=== PATIENT | female | born 1985 | race Caucasian/White ===

== ENCOUNTER 2017-01-23 16:23 | Emergency (ER) | payer OTHER ==
[~2017-01-23] VITALS: Ht 162.6 cm; Wt 102.2 kg
[~2017-01-23 16:23] MED LIST: BACTRIM DS 8001 TA1 PO; CIPRO 250MG TA250 MG PO; CIPRO 500MG TA500 MG PO; CLINDAMYCIN HC300 MG PO; COLAZAL750 MG PO; ESTRADIOL1 MG TD; FLOMAX 0.4MG C0.4 MG PO; MEDROL 4MG. DOSE4 MG PO; NOMEDS *; PERCOCET 5/3251 EACH PO; PHENERGAN 25MG.25 M1 PO; PREDNISONE 20MG20 MG PO; ZOFRAN4 MG PO
--- OUTSIDE RECORDS SUMMARY | 2017-01-23 16:30 | External Medical Summary Rpt | CCD ---
Author Author , FREDERICK Organization FREDERICK Address Unknown Phone [email or web address] Support Name Relationship Address Phone LORIE, Next Of Kin [address] [place], [place] [phone] Purpose Continuity of Care Document - 01-03-2013 through 2016 Problems Code Diagnosis DOS Provider Status K11.20 SIALOADENIT IS, UNSPECIFIED N83.209 UNSPECIFIED OVARIAN CYST, UNSPECIFIED SIDE R03.0 ELEVATED BLOOD-PRESS URE READING, W/O DIAGNOSIS OF HTN R22.0 LOCALIZED SWELLING, MASS AND LUMP, HEAD R50.9 FEVER, UNSPECIFIED R53.81 OTHER MALAISE Allergies, Adverse Reactions, Alerts Type Drug Allergy Adverse Reaction to Substance Substance Reaction Severity Hydrocodone ITCHING Unknown Vital Signs 01-03-2013 10:43 Name Value Interpretat Reference Comment ion Range BP 70 mm[Hg] Diastolic BP Systolic 120 mm[Hg] Heart 67 /min Rate/Pulse O2% 98 % Respiratory 20 /min Rate 01-03-2013 08:30 Name Value Interpretat Reference Comment ion Range BP 94 mm[Hg] Diastolic BP Systolic 159 mm[Hg] Heart 117 /min Rate/Pulse O2% 98 % Respiratory 20 /min Rate Results Labs Lab Lab Date Result Refere Interp Status Commen Order Detail nces retati t Range on BASIC METABOLIC PANEL (01-03-2013 08:45) Glucose 97 74-106 complet 013 mg/dL ed Bld-mCn 08:45 c BUN 12 7-18 complet Bld-mCn 013 mg/dL ed c 08:45 Creat 0.9 0.6-1.0 complet SerPl-m 013 mg/dL ed Cnc 08:45 GFR 74 59- complet (ESTIMA 013 ML/MIN ed KEN) 08:45 Sodium 139 136-145 complet SerPl-s 013 mmoL/L ed Cnc 08:45 Potassi 10-24-2 3.9 3.5-5.1 complet um 013 mmoL/L ed SerPl-s 08:45 Cnc Chlorid 1024-2 105 98-107 complet e 013 mmoL/L ed SerPl-s 08:45 Cnc CO2 -24-2 24 21.0-32 complet SerPl-s 013 mmoL/L .0 ed Cnc 08:45 Calcium 10-24-2 8.5 8.5-10. complet 013 mg/dL 1 ed SerPl-m 08:45 Cnc CBC with AUTO DIFF (01-03-2013 08:45) WBC # 10-24-2 6.1 4.8-10. complet Bld 013 K/MM3 8 ed Auto 08:45 RBC # 1024-2 5.04 4.2-5.4 complet Bld 013 M/mm3 ed Auto 08:45 Hgb -24-2 14.9 12.2-16 complet Bld-mCn 013 g/dL .2 ed c 08:45 Hct Fr 24-2 42.9 % 37.0-47 complet Bld 013 .0 ed 08:45 MCV RBC 10-24-2 85.2 fl 82.2-97 complet 013 .8 ed 08:45 MCH RBC -24-2 29.5 pg 27-31.2 complet Qn 013 ed Auto 08:45 MEAN 10-24-2 34.7 31.8-35 complet CORPUSC 013 g/dl .4 ed ULAR 08:45 HGB CONC RDW RBC -24-2 13.8 % 11.5-17 complet Auto 013 .5 ed 08:45 Platele 10-24-2 192 142-424 complet t Bld 013 K/mm3 ed Ql 08:45 Manual MEAN 10-24-2 7.1 fl 7.4-10. complet PLATELE 013 4 ed T 08:45 VOLUME Granulo 10-24-2 58.9 % 37.0-80 complet cytes 013 .0 ed Fr Bld 08:45 Auto LYMPH % 10-24-2 32.7 % 10-50.0 complet 013 ed 08:45 Monocyt 10-24-2 6.6 % 1.7-9.3 complet es Fr 013 ed Bld 08:45 Auto Eosinop 10-24-2 1.3 % 0.1-12. complet hil Fr 013 0 ed Bld 08:45 Auto Basophi 10-24-2 0.5 % 0.1-2.0 complet ls Fr 013 ed Bld 08:45 Auto Granulo 10-24-2 3.6 1.8-7.8 complet cytes # 013 K/mm3 ed Bld 08:45 Auto Lymphoc 10-24-2 2.0 0.7-4.5 complet ytes Fr 013 K/mm3 ed Bld 08:45 Auto Monocyt 10-24-2 0.4 0.1-1.0 complet es # 013 K/mm3 ed Bld 08:45 Auto Eosinop 10-24-2 0.1 0.0-0.4 complet hil # 013 K/mm3 ed Bld 08:45 Auto Basophi 10-24-2 0.0 0-0.2 complet ls # 013 K/MM3 ed Bld 08:45 Auto Encounters Encounter Start End Date Code Location Performer Type Date Emergency KARY Greenberg (ER) 3 08:32 3 10:46 [facility] Darrin Winter
--- OUTSIDE RECORDS SUMMARY | 2017-01-23 16:30 | External Medical Summary Rpt | CCD ---
Author Author Conduent Organization Conduent Address Unknown Phone Unavailable Purpose Continuity of Care Document - through 2016
--- OUTSIDE RECORDS SUMMARY | 2017-01-23 16:30 | External Medical Summary Rpt | CCD ---
Author Author , FREDERICK Organization FREDERICK Address Unknown Phone [email or web address] Support Name Relationship Address Phone LORIE, Next Of Kin [address] [place], [place] [phone] Purpose Continuity of Care Document - [...] KARY Greenberg (ER) 3 08:32 3 10:46 [facility] Darrin Winter
--- OUTSIDE RECORDS SUMMARY | 2017-01-23 16:30 | External Medical Summary Rpt | CCD ---
Demographics Preferred Language Upper Sorbian Marital Status Unknown Sabianist Affiliation Unknown Race Unknown Ethnic Group Unknown Author Author , MADY MACK Address Unknown Phone Immunization No patient found.
--- OUTSIDE RECORDS SUMMARY | 2017-01-23 16:30 | External Medical Summary Rpt ---
Author Author FREDERICK Babb, FREDERICK Babb Organization [employer] Address Unknown Phone Unavailable
--- OUTSIDE RECORDS SUMMARY | 2017-01-23 16:30 | External Medical Summary Rpt | CCD ---
Demographics Preferred Language Luxembourgish Marital Status Unknown Islam Affiliation Unknown Race Unknown Ethnic Group Unknown Author Author , MADY MACK Address Unknown Phone Immunization No patient found.
[2017-01-23 17:25] LABS: URINE BILIRUBIN - DIPSTICK NEGATIVE (NEG); URINE BLOOD NEGATIVE (NEG)
--- NOTE | 2017-01-23 17:33 | Urgent Treatment Center Report ---
History of Present Issue Date/Time Seen by Provider 01/23/17 1315 Visit Reason Pt arrived:Walked Presenting Problem:PT C/O OF FLANK PAIN AND TROUBLE URINATING Location if Accident: Onset of symptoms date/time:/ or onset unknown for:MEDICAL HX UNKNOWN Have you (or family members/close friends) recently traveled outside the [place]? N If Yes, where/when: Have you had exposure to infectious disease within the past month? TB? Other? Specify: Patient state that she is having right flank pain that radiates around to her groin area. State that she feels like she continuously needs to go to the bathroom. State that she feels pressure, frequency and urgency State that she has had kidney stones in the past and this feels like it did when she had them ALLERGIES Coded Allergies: acetaminophen (From NORCO) (Mild, 06/18/16) hydrocodone (From NORCO) (Mild, 06/18/16) Home Medications Active Scripts SULFAMETHOXAZOLE W/TRIMETHOPRI (Bactrim Ds Tab) 1 TABLET PO BID #20 TAB Prov: 06/18/16 Clindamycin Hcl (Clindamycin 300MG) 300 MG PO QID #40 CAP Prov: 06/18/16 Reported Medications Estradiol 0.375 MG TD BID Prednisone (Prednisone 20MG) 20 MG PO BID History Medical History General Angina: No [place]: No Hypertension? No Hyperlipidemia? No CHF? No COPD? No Asthma? No Hernia? No CVA? No Seizures? No Diabetes? No UTI? Yes Stones? Yes GB Disease: Yes Hepatitis? No Cataracts? No Glaucoma? No MRSA? Yes TB? No Cancer? No Immunization HX DT/Tetanus 5-10 YRS Flu NEVER Pneumonia NEVER Surgical Hx Previous Surgery?Y Appendix Gallbladd COLONOSCOPY IUD WISDOM TEETH TUBAL/TVT HYSTERECTOMY Family History Family HX Diabetes No CAD Yes Hypertension Yes Hyperlipidemia Yes Cancer Yes TB No Social History Smoking Hx Smoker: Never Smoker Tobacco: No Packs/day N/A Alcohol Alcohol: No Review of Systems All Other Systems Reviewed and Negative Constitutional denies no symptoms reported ENT denies: no symptoms reported. Respiratory denies cough, denies shortness of breath Gastrointestinal denies abdominal pain, denies diarrhea, denies nausea, denies vomiting Genitourinary dysuria, frequency, pain. denies: discharge, vaginal discharge, hematuria. Physical Exam Vital Signs Vital Signs Date Time Temp Pulse Resp B/P Pulse O2 O2 Flow FiO2 Ox Delivery Rate 01/23 1700 98.1 88 20 143/89 99 General Appearance normal appearance, WD/WN, no apparent distress Respiratory Status Yes: trachea midline, chest symmetrical, non tender chest. No: respiratory distress. Lung Sounds bilateral: normal breath sounds, lungs clear. Cardiovascular normal exam, regular rate/rhythm Gastrointestinal normal bowel sounds, normal exam, non tender, soft, no guarding , no rebound Back normal inspection, no CVA tenderness, no vertebral tenderness, bowel/ bladder continent, gait normal, Right flank pain that radiates around to groin area Neurologic alert, normal exam, oriented x 3 Medical Decision Making LABS/Meds/Orders Pt receiving controlled substance in ED? No Results/Orders Laboratory Tests 01/23/171708: Urine Color YELLOW, Urine Appearance CLEAR, Urine pH 6.0, Ur Specific [place] 1.025, Urine Protein NEGATIVE, Urine Ketones NEGATIVE, Urine Blood NEGATIVE, Urine Nitrate NEGATIVE, Urine Bilirubin NEGATIVE, Urine Urobilinogen 0.2, Ur Leukocyte Esterase NEGATIVE, Urine Glucose NEGATIVE Orders Procedure Date/time Status [facility] URINE DIPSTICK 01/23 1709 Complete Progress [facility] Progress Notes Comment Called ER patient discussed and sent to ER for further evaluation and workup Departure Departure Time of Disposition 1731 Disposition Still a Patient Clinical Impression Primary Impression: Flank pain Condition STABLE Referrals Pj FONSECA,Crescencio (Family) at 1732
--- NOTE | 2017-01-23 17:33 | Urgent Treatment Center Report ---
History of Present Issue Date/Time Seen by Provider 01/23/17 5778 Visit Reason Pt arrived:Walked Presenting Problem:PT C/O OF FLANK PAIN AND TROUBLE URINATING Location if Accident: Onset of symptoms date/time:/ or onset unknown for:MEDICAL HX UNKNOWN Have you (or family members/close friends) recently traveled outside the [place]? N If Yes, where/when: Have you had exposure to infectious disease within the past month? TB? Other? Specify: Patient state that she is having right flank pain that radiates around to her groin area. State that she feels like she continuously needs to go to the bathroom. State that she feels pressure, frequency and urgency State that she has had kidney stones in the past and this feels like it did when she had them ALLERGIES Coded Allergies: acetaminophen (From NORCO) (Mild, 06/18/16) hydrocodone (From NORCO) (Mild, 06/18/16) Home Medications Active Scripts SULFAMETHOXAZOLE W/TRIMETHOPRI (Bactrim Ds Tab) 1 TABLET PO BID #20 TAB Prov: 06/18/16 Clindamycin Hcl (Clindamycin 300MG) 300 MG PO QID #40 CAP Prov: 06/18/16 Reported Medications Estradiol 0.375 MG TD BID Prednisone (Prednisone 20MG) 20 MG PO BID History Medical History General Angina: No PR: No Hypertension? No Hyperlipidemia? No CHF? No COPD? No Asthma? No Hernia? No CVA? No Seizures? No Diabetes? No UTI? Yes Stones? Yes GB Disease: Yes Hepatitis? No Cataracts? No Glaucoma? No MRSA? Yes TB? No Cancer? No Immunization HX DT/Tetanus 5-10 YRS Flu NEVER Pneumonia NEVER Surgical Hx Previous Surgery?Y Appendix Gallbladd COLONOSCOPY IUD WISDOM TEETH TUBAL/TVT HYSTERECTOMY Family History Family HX Diabetes No CAD Yes Hypertension Yes Hyperlipidemia Yes Cancer Yes TB No Social History Smoking Hx Smoker: Never Smoker Tobacco: No Packs/day N/A Alcohol Alcohol: No Review of Systems All Other Systems Reviewed and Negative Constitutional denies no symptoms reported ENT denies: no symptoms reported. Respiratory denies cough, denies shortness of breath Gastrointestinal denies abdominal pain, denies diarrhea, denies nausea, denies vomiting Genitourinary dysuria, frequency, pain. denies: discharge, vaginal discharge, hematuria. Physical Exam Vital Signs Vital Signs Date Time Temp Pulse Resp B/P Pulse O2 O2 Flow FiO2 Ox Delivery Rate 01/23 1700 98.1 88 20 143/89 99 General Appearance normal appearance, WD/WN, no apparent distress Respiratory Status Yes: trachea midline, chest symmetrical, non tender chest. No: respiratory distress. Lung Sounds bilateral: normal breath sounds, lungs clear. Cardiovascular normal exam, regular rate/rhythm Gastrointestinal normal bowel sounds, normal exam, non tender, soft, no guarding , no rebound Back normal inspection, no CVA tenderness, no vertebral tenderness, bowel/ bladder continent, gait normal, Right flank pain that radiates around to groin area Neurologic alert, normal exam, oriented x 3 Medical Decision Making LABS/Meds/Orders Pt receiving controlled substance in ED? No Results/Orders Laboratory Tests 01/23/171708: Urine Color YELLOW, Urine Appearance CLEAR, Urine pH 6.0, Ur Specific [place] 1.025, Urine Protein NEGATIVE, Urine Ketones NEGATIVE, Urine Blood NEGATIVE, Urine Nitrate NEGATIVE, Urine Bilirubin NEGATIVE, Urine Urobilinogen 0.2, Ur Leukocyte Esterase NEGATIVE, Urine Glucose NEGATIVE Orders Procedure Date/time Status [facility] URINE DIPSTICK 01/23 1709 Complete Progress [facility] Progress Notes Comment Called ER patient discussed and sent to ER for further evaluation and workup Departure Departure Time of Disposition 1731 Disposition Still a Patient Clinical Impression Primary Impression: Flank pain Condition STABLE Referrals Pj FONSECA,Crescencio (Family) at 1732
[2017-01-23 18:01] LABS: HEMOGLOBIN 14.3 g/dL (12.2-16.2); LYMPH # 3.4 K/mm3 (0.7-4.5); LYMPH % 40.4 % (10-50.0)
[2017-01-23 18:14] LABS: URINE BILIRUBIN - DIPSTICK NEGATIVE (NEG); URINE BLOOD NEGATIVE (NEG)
--- NOTE | 2017-01-23 18:45 | RADIOLOGY REPORT PS360 ---
CT ABD PELVIS W/O CONTRAST CLINICAL INDICATION: Right flank pain POSSIBLE KIDNEY STONE ORDERING PHYSICIAN: Declan Lazcano MD PATIENT AGE: 31 years COMPARISON: 10/21/2014 TECHNIQUE: Axial images obtained with sagittal and coronal reformats. PROCEDURE: Oral Contrast: None IV Contrast: None . FINDINGS: There is a noncalcified 8 mm nodule in the right lung base posteriorly and medially similar to the previous exam. There has been prior cholecystectomy. No biliary dilatation. The liver is unremarkable. There is mild splenomegaly at 14 cm. The pancreas and adrenal glands are unremarkable. No hydronephrosis. No renal or ureteral calculi. Unremarkable appearing urinary bladder. No intestinal obstruction or free air. There is been prior appendectomy. No evidence of diverticulitis. Prior hysterectomy. No pelvic mass or abnormal fluid collection evident. IMPRESSION: No acute abdominal or pelvic findings No acute bony anomalies. There is a tiny umbilical hernia containing fat.
[2017-01-23] MEDS ORDERED: FLOMAX 0.4MG C0.4 MG PO (19:00)
[2017-01-23] MEDS ORDERED: ETODOLAC200 MG PO (19:01)
--- NOTE | 2017-01-23 19:02 | Emergency Room Report ---
History of Present Illness Time Seen by [id number] Presenting Problem in Triage Pt arrived:Walked Presenting Problem:PT C/O OF FLANK PAIN AND TROUBLE URINATING Onset of symptoms date/time:/ or onset unknown for:MEDICAL HX UNKNOWN Treatment Prior to Arrival: SEEN IN [facility] Provided by:NURSE Sepsis Risk Assessment: Temp: 98.1 B/P: 143/89 MAP: 107 Pulse: 88 Resp: 20 Recent fever? N Clinical Suspician of Infection? N Mental Status: 1 - Regular (Normal Baseline) Sepsis Risk:Low Sepsis Risk Have you (or family members/close friends) recently traveled outside the [place]? N If Yes, where/when: Have you had exposure to infectious disease within the past month? TB? Other? Specify: Source patient, RN notes reviewed, family, RN/MD Exam Limitations no limitations Comment This is a 31-year-old female patient presented emergency room with RIGHT flank pain, for the past one week and difficulty urinating. She has been seen by Dr. Vogt in the [place] for kidney stones (underwent a cystoscopy). ALLERGIES Coded Allergies: acetaminophen (From NORCO) (Mild, 01/23/17) hydrocodone (From NORCO) (Mild, 01/23/17) Home Medications Active Scripts SULFAMETHOXAZOLE W/TRIMETHOPRI (Bactrim Ds Tab) 1 TABLET PO BID #20 TAB Prov: 06/18/16 Clindamycin Hcl (Clindamycin 300MG) 300 MG PO QID #40 CAP Prov: 06/18/16 Reported Medications Estradiol 0.375 MG TD BID Prednisone (Prednisone 20MG) 20 MG PO BID History Medical History General Angina: No [place]: No Hypertension? No Hyperlipidemia? No CHF? No COPD? No Asthma? No Hernia? No CVA? No Seizures? No Diabetes? No UTI? Yes Stones? Yes GB Disease: Yes Hepatitis? No Cataracts? No Glaucoma? No MRSA? Yes TB? No Cancer? 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 Physical Exam Vital Signs Vital Signs Date Time Temp Pulse Resp B/P Pulse O2 O2 Flow FiO2 Ox Delivery Rate 01/24 1952 98.1 87 20 144/84 99 01/24 1948 87 20 144/84 99 01/23 1736 98.1 88 20 143/89 99 01/23 1700 98.1 88 20 143 99 General Appearance normal appearance, WD/WN, mild distress Respiratory Status Yes: trachea midline, chest symmetrical, non tender chest. No: respiratory distress. Lung Sounds bilateral: normal breath sounds, lungs clear. 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 No Comment 1844-vision reevaluated, she appears in no acute distress, medically stable. Advise of results obtained, need for her to increase her fluid intake, take the medications prescribed as directed and follow-up with urologist for instructions. Results/Orders Laboratory Tests 01/23/171743: Amylase 50 01/23/171743: Sodium 139, Potassium 3.9, Chloride 103, Carbon Dioxide 30, BUN 9, Creatinine 0.8, Estimated Creat Clear 161, Estimated GFR (MDRD) 83, Glucose 87, Calcium 8.8 , Total Bilirubin 0.3, AST 18, ALT 25, Alkaline Phosphatase 82, Total Protein 7.9, Albumin 4.1, Globulin 3.8 H, Albumin/Globulin Ratio 1.1, Lipase 134, WBC 8.4, RBC 5.03, Hgb 14.3, Hct 42.2, MCV 83.8, RDW 12.1, Plt Count 245, MPV 7.3 L , Gran % 50.9, Gran # 4.3, Lymphocytes % 40.4, Monocytes % 6.9, Eosinophils % 1.2, Basophils % 0.6, Lymphocytes # 3.4, Monocytes # 0.6, Eosinophils # 0.1, Basophils # 0.1, PUBS MCHC 33.9, MCH 28.4 01/23/17 1710: Urine Color YELLOW, Urine Appearance CLEAR, Urine pH 6.0, Ur Specific [place] 1.015, Urine Protein NEGATIVE, Urine Ketones NEGATIVE, Urine Blood NEGATIVE, Urine Nitrate NEGATIVE, Urine Bilirubin NEGATIVE, Urine Urobilinogen 0.2, Ur Leukocyte Esterase NEGATIVE, Urine RBC NONE, Urine WBC NONE, Ur Squamous Epith Cells 3-5, Urine Bacteria TRACE, Urine Glucose NEGATIVE 01/23/17 1709: Urine Color YELLOW, Urine Appearance CLEAR, Urine pH 6.0, Ur Specific [place] 1.025, Urine Protein NEGATIVE, Urine Ketones NEGATIVE, Urine Blood NEGATIVE, Urine Nitrate NEGATIVE, Urine Bilirubin NEGATIVE, Urine Urobilinogen 0.2, Ur Leukocyte Esterase NEGATIVE, Urine Glucose NEGATIVE Orders Procedure Date/time Status DIET-NOTHING BY MOUTH 01/24 B Active AMYLASE 01/23 1749 Complete URINALYSIS/COMPLETE 01/23 1748 Complete URINE 01/[address] ABD/PELVIS REQ 01/23 174 Complete IV SALINE LOCK 01/23 174 Active LIPASE 01/23 1747 Complete CBC WITH AUTO DIFF 01/23 174 Complete CHEM 12 PROFILE 01/23 174 Complete [facility] URINE DIPSTICK 01/23 1709 Complete XRAY/CT/US XRAY/CT/US CT abdomen, pelvis CT interpretation by discussed w/radiologist CT Results known nephrolithiasis, no ureterolithiasis, see radiologist's report Departure Departure Time of Disposition 1859 Disposition DC Home or Self Care(routine) Clinical Impression Primary Impression: Flank pain Condition STABLE Referrals YOLIS VOGT: 2 Days-Call Office if not better Patient Instructions DI for Flank Pain Additional Instructions Please plenty of fluids, take the medications prescribed as directed, follow-up with Dr. Vogt if not better, per instructions. Discharge Counseling Counseled pt/family regarding diagnosis, test results, medications/RX, home care, follow up needs Prescriptions Current Visit Scripts TAMSULOSIN HCL (Flomax 0.4MG) 0.4 MG PO QHS #30 CAP Etodolac 200 MG PO QIDP PRN pain #28 CAP ED Critical Care Critical Care No at 1018
--- NOTE | 2017-01-23 19:02 | Emergency Room Report ---
History of Present Illness Time Seen by [id number] Presenting Problem in Triage Pt arrived:Walked Presenting Problem:PT C/O OF FLANK PAIN AND TROUBLE URINATING Onset of symptoms date/time:/ or onset unknown for:MEDICAL HX UNKNOWN Treatment Prior to Arrival: SEEN IN [facility] Provided by:NURSE Sepsis Risk Assessment: Temp: 98.1 B/P: 143/89 MAP: 107 Pulse: 88 Resp: 20 Recent fever? N Clinical Suspician of Infection? N Mental Status: 1 - Regular (Normal Baseline) Sepsis Risk:Low Sepsis Risk Have you (or family members/close friends) recently traveled outside the [place]? N If Yes, where/when: Have you had exposure to infectious disease within the past month? TB? Other? Specify: Source patient, RN notes reviewed, family, RN/MD Exam Limitations no limitations Comment This is a 31-year-old female patient presented emergency room with RIGHT flank pain, for the past one week and difficulty urinating. She has been seen by Dr. Vogt in the [place] for kidney stones (underwent a cystoscopy). ALLERGIES Coded Allergies: acetaminophen (From [facility]) (Mild, 01/23/17) hydrocodone (From [facility]) (Mild, 01/23/17) Home Medications Active Scripts SULFAMETHOXAZOLE W/TRIMETHOPRI (Bactrim Ds Tab) 1 TABLET PO BID #20 TAB Prov: 06/18/16 Clindamycin Hcl (Clindamycin 300MG) 300 MG PO QID #40 CAP Prov: 06/18/16 Reported Medications Estradiol 0.375 MG TD BID Prednisone (Prednisone 20MG) 20 MG PO BID History Medical History General Angina: No RI: No Hypertension? No Hyperlipidemia? No CHF? No COPD? No Asthma? No Hernia? No CVA? No Seizures? No Diabetes? No UTI? Yes Stones? Yes GB Disease: Yes Hepatitis? No Cataracts? No Glaucoma? No MRSA? Yes TB? No Cancer? 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 Physical Exam Vital Signs Vital Signs Date Time Temp Pulse Resp B/P Pulse O2 O2 Flow FiO2 Ox Delivery Rate 01/24 1952 98.1 87 20 144/84 99 01/24 1948 87 20 144/84 99 01/23 1736 98.1 88 20 143/89 99 01/23 1700 98.1 88 20 143 99 General Appearance normal appearance, WD/WN, mild distress Respiratory Status Yes: trachea midline, chest symmetrical, non tender chest. No: respiratory distress. Lung Sounds bilateral: normal breath sounds, lungs clear. Cardiovascular normal exam, regular rate/rhythm, no peripheral edema, no gallop, no JVD, no murmur, no rub, normal peripheral pulses Gastrointestinal normal bowel sounds, normal exam, non tender, soft, no organomegaly Back normal inspection, no vertebral tenderness, gait normal, CVA tenderness (R) , muscle spasm Extremities non-tender, normal range of motion, normal inspection Neurologic alert, hedis review nurse II-XII nml as tested, normal exam, oriented x 3 Mental status normal mood/affect Skin intact, normal color, warm/dry Medical Decision Making LABS/Meds/Orders Pt receiving controlled substance in ED? No Comment 1844-vision reevaluated, she appears in no acute distress, medically stable. Advise of results obtained, need for her to increase her fluid intake, take the medications prescribed as directed and follow-up with urologist for instructions. Results/Orders Laboratory Tests 01/23/171743: Amylase 50 01/23/171743: Sodium 139, Potassium 3.9, Chloride 103, Carbon Dioxide 30, BUN 9, Creatinine 0.8, Estimated Creat Clear 161, Estimated GFR (MDRD) 83, Glucose 87, Calcium 8.8 , Total Bilirubin 0.3, AST 18, ALT 25, Alkaline Phosphatase 82, Total Protein 7.9, Albumin 4.1, Globulin 3.8 H, Albumin/Globulin Ratio 1.1, Lipase 134, WBC 8.4, RBC 5.03, Hgb 14.3, Hct 42.2, MCV 83.8, RDW 12.1, Plt Count 245, MPV 7.3 L , Gran % 50.9, Gran # 4.3, Lymphocytes % 40.4, Monocytes % 6.9, Eosinophils % 1.2, Basophils % 0.6, Lymphocytes # 3.4, Monocytes # 0.6, Eosinophils # 0.1, Basophils # 0.1, PUBS MCHC 33.9, MCH 28.4 01/23/17 1710: Urine Color YELLOW, Urine Appearance CLEAR, Urine pH 6.0, Ur Specific [place] 1.015, Urine Protein NEGATIVE, Urine Ketones NEGATIVE, Urine Blood NEGATIVE, Urine Nitrate NEGATIVE, Urine Bilirubin NEGATIVE, Urine Urobilinogen 0.2, Ur Leukocyte Esterase NEGATIVE, Urine RBC NONE, Urine WBC NONE, Ur Squamous Epith Cells 3-5, Urine Bacteria TRACE, Urine Glucose NEGATIVE 01/23/17 1709: Urine Color YELLOW, Urine Appearance CLEAR, Urine pH 6.0, Ur Specific [place] 1.025, Urine Protein NEGATIVE, Urine Ketones NEGATIVE, Urine Blood NEGATIVE, Urine Nitrate NEGATIVE, Urine Bilirubin NEGATIVE, Urine Urobilinogen 0.2, Ur Leukocyte Esterase NEGATIVE, Urine Glucose NEGATIVE Orders Procedure Date/time Status DIET-NOTHING BY MOUTH 01/24 B Active AMYLASE 01/23 1749 Complete URINALYSIS/COMPLETE 01/23 1748 Complete URINE 01/[address] ABD/PELVIS REQ 01/23 174 Complete IV SALINE LOCK 01/23 174 Active LIPASE 01/23 1747 Complete CBC WITH AUTO DIFF 01/23 174 Complete CHEM 12 PROFILE 01/23 174 Complete UTC URINE DIPSTICK 01/23 1709 Complete XRAY/CT/US XRAY/CT/US CT abdomen, pelvis CT interpretation by discussed w/radiologist CT Results known nephrolithiasis, no ureterolithiasis, see radiologist's report Departure Departure Time of Disposition 1859 Disposition DC Home or Self Care(routine) Clinical Impression Primary Impression: Flank pain Condition STABLE Referrals YOLIS VOGT: 2 Days-Call Office if not better Patient Instructions DI for Flank Pain Additional Instructions Please plenty of fluids, take the medications prescribed as directed, follow-up with Dr. Vogt if not better, per instructions. Discharge Counseling Counseled pt/family regarding diagnosis, test results, medications/RX, home care, follow up needs Prescriptions Current Visit Scripts TAMSULOSIN HCL (Flomax 0.4MG) 0.4 MG PO QHS #30 CAP Etodolac 200 MG PO QIDP PRN pain #28 CAP ED Critical Care Critical Care No at 1011
[2017-01-23 19:52] VITALS: BP 144/84
== END 2017-01-23 19:59 | disposition home or self-care (01) ==
LOC: UTC 16:23 → ER 16:27
PROVIDERS: Emergency Medicine; Nurse Practitioner
DX: R10.9 Unspecified abdominal pain (principal); Z87.442 Personal history of urinary calculi; Z88.6 Allergy status to analgesic agent; Z88.5 Allergy status to narcotic agent; Z79.899 Other long term (current) drug therapy; Z86.14 Personal history of Methicillin resistant Staphylococcus aureus infection